=== PATIENT | female | born 1965 | race American Indian/Alaskan Native ===

== ENCOUNTER 2020-07-08 10:05 | Observation (INO) | payer SELFPAY ==
--- NOTE | 2020-07-08 10:31 | Event Note ---
ED Screening Note Date of service: 07/08/20 Time: 10:25 ED Screening Note: 55-year-old -[place]ron[place] female reports to the emergency room stating that this morning she woke up with left-sided facial weakness. Drooling. And having slurred speech. Patient states that during the weekend she is felt like her tongue was swollen. She reports she is left-handed and does have a left hand weakness. Patient reports has a history of hypertension but never had a CVA. Exam patient has left side facial droop no sparing of the eyebrows no droopiness of the left eye extremities with a normal limits 5 out of 5 on strength This initial assessment/diagnostic orders/clinical plan/treatment(s) is/are subject to change based on patients health status, clinical progression and re- assessment by fellow clinical providers in the ED. Further treatment and workup at subsequent clinical providers discretion. Patient/guardian urged not to elope from the ED as their condition may be serious if not clinically assessed and managed. Initial orders include:
[2020-07-08] MEDS ORDERED: ASPIRIN 325 MG TAB PO ONE (10:55)
--- NOTE | 2020-07-08 10:59 | Consultation ---
History of Present Illness Consult date: 07/08/20 History of present illness: [facility] Date of Service: 07/08/2020 10:27:13 Impression: I63.9 - Cerebrovascular accident (CVA), unspecified mechanism (HCC) Comments/Sign-Out: 55 yo F hx HTN HLD DM2 presents with several days of slurred speech and now right hand tingling concerning for subacute stroke. Symptoms atypical distribution in that sensation decreased in left upper face and left forearm and palmar aspect of right hand. However she also has ataxia in left UE and drift in both legs, question embolic stroke as well. Not candidate for alteplase or NILTON Metrics: Last Known Well: Unknown [facility] Notification Time: 07/08/2020 10:26:52 Arrival Time: 07/08/2020 10:05:00 Stamp Time: 07/08/2020 10:27:13 Time First Login Attempt: 07/08/2020 10:31:11 Symptoms: slurred speech x few days, right hand tingling today NIHSS Start Assessment Time: 07/08/2020 10:45:11 Patient is not a candidate for Alteplase/Activase. Patient was not deemed candidate for Alteplase/Activase thrombolytics because of Last Well Known Above 4.[address] head showed no acute hemorrhage or acute core infarct. Clinical Presentation is not Suggestive of Large Vessel Occlusive Disease ED Physician notified of diagnostic impression and management plan on 07/08/2020 10:53:04 Our recommendations are outlined below. Recommendations: Activate Stroke Protocol Admission/Order Set Stroke/Telemetry Floor Neuro Checks Bedside Swallow Eval DVT Prophylaxis IV Fluids, Normal Saline Head of Bed 30 Degrees Euglycemia and Avoid Hyperthermia (PRN Acetaminophen) Antiplatelet Therapy Recommended Initiate Aspirin 81 MG Daily MRI brain wwo contrast rule out stroke, embolic stroke or other (mets, etc) MRA head and neck BP permissive to 220/110 Routine neuro workup Routine Consultation with Inhouse Neurology for Follow up Care Sign Out: Discussed with Emergency Department Provider History of Present Illness: Patient is a 55 year old Female. Patient was brought by private transportation with symptoms of slurred speech x few days, right hand tingling today hx HTN DM2 and HLD with slurred speech all weekend but tingling in right hand this morning. She says she feels off balance and weak in both legs as if she had been on a long bicycle ride. She denies any double vision vision loss difficulty swallowing or chewing. She said she had been talking to her kids and grandkids over the weekend. she was having difficulty with her words. She thought it was because of her dentures at first. No ANGULO or migraine No known hx stroke TIA [place] Cancer Migraines Last seen normal was beyond 4.5 hours of presentation. There is no history of Recent Anticoagulants. Past Medical History: Hypertension Diabetes Mellitus Hyperlipidemia Antiplatelet use: No Examination: BP(182/87), Pulse(82), Blood Glucose(135) 1A: Level of Consciousness - Alert; keenly responsive + 0 1B: Ask Month and Age - Both Questions Right + 0 1C: Blink Eyes & Squeeze Hands - Performs Both Tasks + 0 2: Test Horizontal Extraocular Movements - Normal + 0 3: Test Visual Tineo - No Visual Loss + 0 4: Test Facial Palsy (Use Grimace if Obtunded) - Normal symmetry + 0 5A: Test Left Arm Motor Drift - No Drift for 10 Seconds + 0 5B: Test Right Arm Motor Drift - No Drift for 10 Seconds + 0 6A: Test Left Leg Motor Drift - Drift, but doesn't hit bed + 1 6B: Test Right Leg Motor Drift - Drift, but doesn't hit bed + 1 7: Test Limb Ataxia (FNF/Heel-Waldrop) - Ataxia in 1 Limb + 1 8: Test Sensation - Mild-Moderate Loss: Less Sharp/More Dull + 1 9: Test Language/Aphasia - Normal; No aphasia + 0 10: Test Dysarthria - Normal + 0 11: Test Extinction/Inattention - No abnormality + 0 NIHSS Score: 4 Pre-Morbid Modified Ranking Scale: 0 Points = No symptoms at all Patient/Family was informed the Neurology Consult would happen via TeleHealth consult by way of interactive audio and video telecommunications and consented to receiving care in this manner. Due to the immediate potential for life-threatening deterioration due to underlying acute neurologic illness, I spent 35 minutes providing critical care. This time includes time for face to face visit via telemedicine, review of medical records, imaging studies and discussion of findings with providers, the patient and/or family. Dr Aureliano Wheeler [facility] Case [id number] Medications and Allergies Allergies Allergy/AdvReac Type Severity Reaction Status Date / Time No Known Allergies Allergy Unverified 07/08/20 10:15 Physical Examination - Vital Signs Vital Signs: Vital Signs Temp Pulse Resp BP Pulse Ox 98.5 F 82 18 182/87 94 07/08/20 10:14 07/08/20 10:14 07/08/20 10:14 07/08/20 10:14 07/08/20 10:14 Results - Laboratory Findings Abnormal Lab Findings: Abnormal Labs 07/08/20 10:27 POC Glucose 135 H
--- NOTE | 2020-07-08 11:12 | Emergency Department Report ---
ED Neuro Deficit HPI - General Chief Complaint: Neuro Symptoms/Deficit Stated Complaint: POSSIBLE STROKE Time Seen by Provider: 07/08/20 10:28 Source: patient Mode of arrival: Ambulatory Limitations: No Limitations - History of Present Illness Initial Comments: 55-year-old female, history of hypertension, diabetes, hyperlipidemia, presents to ED with slurred speech and left hand weakness. Patient states she began noticing some slurred speech 4 days ago, initially thinking that it was due to her dentures. States this morning she awoke with weakness in her left hand. States she has been having difficulty with writing, so she decided to come to [facility] ED. Patient reports she has been out of her blood pressure medications for more than 6 months. States she was previously taking lisinopril and hydrochlorothiazide. -: days(s) (4) Location: speech, left arm Presenting Symptoms: Present: Weak/Paralyzed One Side, Unable to Speak Clearly History of same: No Place: home Severity: mild Quality: weak Improves With: none Worsens With: none On Anticoagulants: No Associated Symptoms: denies other symptoms. denies: fever/chills, headaches, nausea/vomiting, shortness of breath Treatments Prior to Arrival: none - Related Data Allergies/Adverse Reactions: Allergies Allergy/AdvReac Type Severity Reaction Status Date / Time No Known Allergies Allergy Unverified 07/08/20 10:15 ED Review of Systems ROS: Stated complaint: POSSIBLE STROKE Other details as noted in HPI Comment: All other systems reviewed and negative Constitutional: denies: chills, fever Respiratory: denies: shortness of breath Cardiovascular: denies: chest pain Neurological: weakness, paresthesias. denies: headache ED Past Medical Hx - Past Medical History Hx Hypertension: Yes Hx Dementia: Yes Additional medical history: HLD - Surgical History Past Surgical History?: Yes Additional Surgical History: hysterectomy, - Social History Smoking Status: Current Every Day Smoker ED Neuro Physical Exam - General Limitations: No Limitations General appearance: alert, in no apparent distress Suspected Stroke: Yes - Head Head exam: Present: atraumatic, normocephalic - Eye Eye exam: Present: normal appearance, EOMI - ENT ENT exam: Present: mucous membranes moist - Neck Neck exam: Present: normal inspection - Respiratory Respiratory exam: Present: normal lung sounds bilaterally. Absent: respiratory distress - Cardiovascular Cardiovascular Exam: Present: regular rate, normal rhythm - GI/Abdominal GI/Abdominal exam: Present: soft. Absent: distended, tenderness - Extremities Exam Extremities exam: Present: normal inspection - Neurological Exam Neurological exam: Present: alert, oriented X3 - NIHSS Assessment Interval: Baseline 1a. Level of Consciousness: alert/keenly responsive 1b. LOC Questions: answers both correctly 1c. LOC Commands: performs tasks correctly 2. Best Gaze: normal 3. Visual: no visual loss 4. Facial Palsy: normal symmetrical movement 5b. Motor Arm Right: no drift 5a. Motor Arm Left: no drift 6a. Motor Leg Left: drift 6b. Motor Leg Right: drift 7. Limb Ataxia: present 1 limb 8. Sensory: mild/moderate sensory loss 9. Best Language: no aphasia 10. Dysarthria: normal 11. Extinction/Inattention: no abnormality Total Score: 4 Stroke Severity: Minor Stroke - Psychiatric Psychiatric exam: Present: normal affect, normal mood - Skin Skin exam: Present: warm, dry, intact, normal color ED Course Vital Signs 07/08/20 07/08/20 07/08/20 10:14 10:42 10:45 Temperature 98.5 F Pulse Rate 82 Respiratory 18 Rate Blood Pressure 182/87 228/103 Blood Pressure [Right] O2 Sat by Pulse 94 100 97 Oximetry 07/08/20 07/08/20 07/08/20 10:46 11:01 11:15 Temperature 98.2 F Pulse Rate 82 69 73 Respiratory 18 15 18 Rate Blood Pressure 228/103 228/103 Blood Pressure 228/103 [Right] O2 Sat by Pulse 100 99 99 Oximetry 07/08/20 07/08/20 07/08/20 11:20 11:31 11:45 Temperature Pulse Rate 74 68 69 Respiratory 13 19 Rate Blood Pressure 203/126 228/103 228/103 Blood Pressure [Right] O2 Sat by Pulse 100 100 Oximetry 07/08/20 07/08/20 07/08/20 12:01 12:15 12:31 Temperature Pulse Rate 71 72 65 Respiratory 22 16 17 Rate Blood Pressure 228/103 228/103 228/103 Blood Pressure [Right] O2 Sat by Pulse 100 100 100 Oximetry 07/08/20 07/08/20 07/08/20 12:45 13:01 13:15 Temperature Pulse Rate 67 65 62 Respiratory 16 16 16 Rate Blood Pressure 228/103 228/103 228/103 Blood Pressure [Right] O2 Sat by Pulse 100 100 100 Oximetry 07/08/20 07/08/20 07/08/20 13:31 13:45 14:01 Temperature Pulse Rate 77 70 71 Respiratory 18 24 24 Rate Blood Pressure 228/103 228/103 194/80 Blood Pressure [Right] O2 Sat by Pulse 100 100 96 Oximetry 07/08/20 07/08/20 07/08/20 14:15 14:31 14:45 Temperature Pulse Rate 67 70 Respiratory 28 H 34 H Rate Blood Pressure 194/80 177/81 177/81 Blood Pressure [Right] O2 Sat by Pulse 98 97 98 Oximetry 07/08/20 07/08/20 07/08/20 15:01 15:15 15:31 Temperature Pulse Rate Respiratory Rate Blood Pressure 177/81 177/81 177/81 Blood Pressure [Right] O2 Sat by Pulse 97 96 97 Oximetry 07/08/20 07/08/20 07/08/20 15:45 16:01 16:15 Temperature Pulse Rate Respiratory Rate Blood Pressure 177/81 177/81 177/81 Blood Pressure [Right] O2 Sat by Pulse 96 98 98 Oximetry 07/08/20 07/08/20 07/08/20 16:31 16:45 17:01 Temperature Pulse Rate Respiratory Rate Blood Pressure 177/81 177/81 177/81 Blood Pressure [Right] O2 Sat by Pulse 98 99 97 Oximetry 07/08/20 17:15 Temperature Pulse Rate Respiratory Rate Blood Pressure 177/81 Blood Pressure [Right] O2 Sat by Pulse 95 Oximetry - Lab Data Result diagrams: 07/08/20 11:26 Lab Results 07/08/20 07/08/20 07/08/20 Range/Units 10:27 11:26 11:26 WBC 4.4 L (4.5-11.0) K/mm3 RBC 4.12 (3.65-5.03) M/mm3 Hgb 13.3 (10.1-14.3) gm/dl Hct 39.2 (30.3-42.9) % MCV 95 (79-97) fl MCH 32 (28-32) pg MCHC 34 (30-34) % RDW 13.8 (13.2-15.2) % Plt Count 219 (140-440) K/mm3 Lymph % (Auto) 33.7 (13.4-35.0) % Bradley % (Auto) 5.4 (0.0-7.3) % Eos % (Auto) 1.0 (0.0-4.3) % Baso % (Auto) 0.8 (0.0-1.8) % Lymph # (Auto) 1.5 (1.2-5.4) K/mm3 Bradley # (Auto) 0.2 (0.0-0.8) K/mm3 Eos # (Auto) 0.0 (0.0-0.4) K/mm3 Baso # (Auto) 0.0 (0.0-0.1) K/mm3 Seg Neutrophils % 59.1 (40.0-70.0) % Seg Neutrophils # 2.6 (1.8-7.7) K/mm3 PT 13.2 (12.2-14.9) Sec. INR 1.01 (0.87-1.13) APTT 28.0 (24.2-36.6) Sec. Thrombin Time 15.9 (15.1-19.6) Sec. POC Glucose 135 H (70-105) mg/dL Total Creatine Kinase (30-135) units/L CK-MB (CK-2) (0.0-4.0) ng/mL CK-MB (CK-2) Rel Index (0-4) Troponin T (0.00-0.029) ng/mL 07/08/20 Range/Units 11:26 WBC (4.5-11.0) K/mm3 RBC (3.65-5.03) M/mm3 Hgb (10.1-14.3) gm/dl Hct (30.3-42.9) % MCV (79-97) fl MCH (28-32) pg MCHC (30-34) % RDW (13.2-15.2) % Plt Count (140-440) K/mm3 Lymph % (Auto) (13.4-35.0) % Bradley % (Auto) (0.0-7.3) % Eos % (Auto) (0.0-4.3) % Baso % (Auto) (0.0-1.8) % Lymph # (Auto) (1.2-5.4) K/mm3 Bradley # (Auto) (0.0-0.8) K/mm3 Eos # (Auto) (0.0-0.4) K/mm3 Baso # (Auto) (0.0-0.1) K/mm3 Seg Neutrophils % (40.0-70.0) % Seg Neutrophils # (1.8-7.7) K/mm3 PT (12.2-14.9) Sec. INR (0.87-1.13) APTT (24.2-36.6) Sec. Thrombin Time (15.1-19.6) Sec. POC Glucose (70-105) mg/dL Total Creatine Kinase 149 H (30-135) units/L CK-MB (CK-2) 4.3 H (0.0-4.0) ng/mL CK-MB (CK-2) Rel Index 2.8 (0-4) Troponin T < 0.010 (0.00-0.029) ng/mL - EKG Data -: EKG Interpreted by Me EKG shows normal: sinus rhythm, axis, intervals, QRS complexes Rate: normal Interpretation: other (inferolateral T wave inversions; old anterior infarct) - Radiology Data Radiology results: report reviewed, image reviewed - Medical Decision Making 55-year-old female presents to ED with possible stroke symptoms. Patient with left upper extremity ataxia, drift to the bilateral lower extremities, and some facial paresthesias. Patient came in as a stroke alert and was seen by teleneurologist. Evidence of CVA present on CT head. Neurologist recommends MRI with and without contrast in addition to MRA head and neck. Patient given aspirin here in the ED. She will be admitted by hospitalist for further management. - Differential Diagnosis CVA Critical care attestation.: If time is entered above; I have spent that time in minutes in the direct care of this critically ill patient, excluding procedure time. ED Disposition Clinical Impression: CVA (cerebral vascular accident) Disposition: DC-09 OP ADMIT IP TO THIS HOSP Is pt being admited?: Yes Condition: Stable Time of Disposition: 12:17
--- NOTE | 2020-07-08 11:20 | Cat Scan Report ---
CT head/brain wo con INDICATION / CLINICAL INFORMATION: 55 years Female; with right hand numbness.. TECHNIQUE: Routine CT head without contrast. All CT scans at this location are performed using CT dos e reduction for ALARA by means of automated exposure control. COMPARISON: None. FINDINGS: BRAIN / INTRACRANIAL CONTENTS: There is focus of decreased attenuation involving the right howell rad iata most consistent with old infarct at. However, the anterior component demonstrates less decrease signal and correlation would be needed regarding more acute process. An old small infarct is seen inv olving the left centrum semiovale There is no CT evidence of acute intracranial hemorrhage or significant mass effect. There is mild ce rebral atrophy. The ventricular system is correspondingly appropriate in size and configuration. ORBITS: No significant abnormality of visualized orbits. SINUSES / MASTOIDS: No significant abnormality in the visualized paranasal sinuses or mastoid air nuria ls. CRANIOCERVICAL JUNCTION: No significant abnormality. ADDITIONAL FINDINGS: None. IMPRESSION: 1. There is microvascular angiopathy with infarct involving the right howell radiata as detailed abov e. The anterior attenuation may represent more acute process and correlation would be needed. 2. There is no CT evidence of acute intracranial hemorrhage. Signer Name: Jorge Sellers MD Signed: 07/08/2020 11:15 AM Workstation Name: [id number]
[2020-07-08 11:39] LABS: Basophils % (Auto) 0.8 % (0.0-1.8); Hematocrit 39.2 % (30.3-42.9); Hemoglobin 13.3 gm/dl (10.1-14.3); Lymphocytes # (Auto) 1.5 K/mm3 (1.2-5.4); Lymphocytes % (Auto) 33.7 % (13.4-35.0); Mean Corpuscular HGB Conc 34 % (30-34); Mean Corpuscular Volume 95 fl (79-97); Monocytes # (Auto) 0.2 K/mm3 (0.0-0.8); Monocytes % (Auto) 5.4 % (0.0-7.3); Platelet Count 219 K/mm3 (140-440); Red Blood Count 4.12 M/mm3 (3.65-5.03); Red Cell Distribution Width 13.8 % (13.2-15.2)
[2020-07-08 11:48] LABS: INR 1.01 (0.87-1.13)
[2020-07-08 11:49] LABS: Thrombin Time 15.9 Sec. (15.1-19.6)
[2020-07-08 12:03] LABS: Creatine Kinase MB 4.3 ng/mL (0.0-4.0)
[2020-07-08 17:30] VITALS: BP 177/81
== END 2020-07-08 19:36 | disposition left against medical advice (07) ==
LOC: ED 10:05 → 4A 12:51
PROVIDERS: ADMIT Internal Medicine; ATTEND Internal Medicine
DX: I63.9 Cerebral infarction, unspecified (principal); R29.704 NIHSS score 4; I10 Essential (primary) hypertension; E11.9 Type 2 diabetes mellitus without complications; E78.5 Hyperlipidemia, unspecified; F17.200 Nicotine dependence, unspecified, uncomplicated; Z90.710 Acquired absence of both cervix and uterus
CPT/HCPCS: 36415; 70450; 82550; 82553; 82962; 84484; 85025; 85610; 85670; 85730; 93005; 96374; 99285; G0378